=== PATIENT | male | born 1995 | race Caucasian/White ===

== ENCOUNTER 2022-10-29 02:18 | Emergency (ER) | payer MEDICARE, MEDICAID, SELFPAY ==
[2022-10-29 02:20] VITALS: BP 135/83; PULSE 78; RESP 16; TEMP 37.1; O2SAT 96; BMI 29.6
--- NOTE | 2022-10-29 02:26 | ED_ITS ---
HPI - Male Genitourinary General Chief complaint: General Medical Stated complaint: STD check Time Seen by Provider: 10/29/22 02:26 Source: patient Mode of arrival: ambulatory Limitations: no limitations History of Present Illness HPI Narrative: wants HIV test no symptoms no prodrome had unprotected sex with female partner 1 month ago and now thinks she might have HIV Complaint: possible STD exposure Onset (ago): month(s) (1) Severity: mild Relieving factors: none Exacerbating factors: none Context: other (was told his prior partner might have HIV) Associated symptoms: Reports denies other symptoms Related Data Allergies Allergy/AdvReac Type Severity Reaction Status Date / Time No Known Allergies Allergy Unverified 11/03/19 18:36 [No Known Allergies*] Review of Systems Review of Systems: Constitutional : No Fever, No Chills, Cardiovascular : No Chest Pain, No SOB Respiratory : No Dyspnea Gastrointestinal : No abdominal pain, no nausea : no discharge, no swelling, no dysuria Musculoskeletal : No Joint Swelling Skin : No rash, no skin lesions Neuro : No Weakness, No Numbness PMFSH Past Medical History Attestation statement: The following information was validated with the patient. Medical History No pertinent past medical history Social History Social History (Updated 10/29/22 @ 02:45 by Sharifa Álvarez DO) Alcohol intake: current Alcohol intake frequency: holidays/special occasions only Patient Tobacco Use Status: Never used Tobacco Substance Use Type: Marijuana Physical Exam Vital Signs: Vital Signs: Last Vital Signs Temp 98.7 F 10/29/22 02:20 Pulse 78 10/29/22 02:20 Resp 16 10/29/22 02:20 BP 135/83 10/29/22 02:20 Pulse Ox 96 10/29/22 02:20 O2 Del Method Room Air 10/29/22 02:20 BMI result Body Mass Index 29.6 Appearance: Alert. Oriented X3. No acute distress. Eyes: Pupils equal, round and reactive to light. ENT: Pharynx normal. Neck: Normal inspection. Neck supple. CVS: Normal heart rate and rhythm. Pulses normal. Respiratory: No respiratory distress. Breath sounds normal. Abdomen: Soft and non-tender. Skin: Skin warm and dry. Normal skin color. Extremities: No lower extremity edema. Neuro: Oriented X 3. No motor deficit. No sensory deficit. Medical Decision Making Medical Decision Making [facility] Narrative: 26 yo male with no PMH here with c/o possible HIV exposure though not confirmed and no prodrome or symptoms - did send off GC testing but will hold off treatment until results. We talked about HIV testing [facility] as we have no way to closely follow results or do counseling if positive. at this time can follow up as outpatient Differential Diagnosis Differential Diagnoses: The differential diagnosis associated with the presentation includes STD exposure Lab Data [facility] Lab Attestation statement: I reviewed the patient's lab results. Tests considered The following testing was considered but not selected: HIV but there is no way to closely follow up or do counseling Discharge Plan Discharge Clinical Impression: Sexually transmitted disease exposure Patient Disposition: Home, Self-Care Instructions: Sexually Transmitted Diseases (ED) Additional Instructions: [facility] [address] [phone] [facility] [place] is another option [address] [employer] [phone] we did send off urine for gonorrhea and chlamydia if positive we will call you with results.
[2022-10-29 05:32] LABS: CT PCR NOT DETECTED (Not Detect.); NG PCR NOT DETECTED (Not Detect.)
== END 2022-10-29 03:09 | disposition home or self-care (01) ==
LOC: HO.ED 02:46
PROVIDERS: Emergency Provider Emergency Medicine
DX: A64 Unspecified sexually transmitted disease (principal); Z20.2 Contact with and (suspected) exposure to infections with a predominantly sexual mode of transmission
CPT/HCPCS: 0353U; 99283; 99284

== ENCOUNTER 2022-10-30 21:00 | Emergency (ER) | payer MEDICARE, MEDICAID, SELFPAY ==
[2022-10-30 21:05] VITALS: BP 132/84; PULSE 88; RESP 16; TEMP 36.1; O2SAT 98; BMI 26.6
--- NOTE | 2022-10-30 21:19 | ED.PSYCH ---
HPI - Psych General Chief Complaint: Psychiatric Symptoms Stated Complaint: SI WITH PLAN Source: patient Mode of arrival: EMS Limitations: no limitations History of Present Illness HPI Narrative: patient comes to the emergency room complaining of suicidal thoughts. Earlier today, he was at home, talking to his mother over the phone. Patient told his mother that he had suicidal thoughts without any tension. Patient's mother called [facility] who did a well check, call an ambulance and brought the patient to the emergency room. Patient states that earlier today he did feel suicidal without any plan. At this time, he is no longer SI or HI but is expressing interest to talk to the care team. Related Data Home Medications Medication Instructions Recorded Confirmed aripiprazole 2 mg tablet 2 mg PO DAILY 10/30/22 10/30/22 hydroxyzine HCl 25 mg tablet 25 mg PO TID 10/30/22 10/30/22 Allergies Allergy/AdvReac Type Severity Reaction Status Date / Time No Known Allergies Allergy Unverified 11/03/19 18:36 [No Known Allergies*] Review of Systems Review of Systems: Constitutional : No Weight loss, No Fever, No Chills, No Night Sweats, No Fatigue, No Malaise ENT/Mouth : No Hearing loss, No Ear Pain, No Nasal Congestion, No Sinus Pain, No Hoarseness, No sore throat, No Rhinorrhea, No Swallowing Difficulty Eyes: No Eye Pain, No Swelling, No Redness, No Foreign Body, No Discharge, No Vision Changes Cardiovascular : No Chest Pain, No SOB, No Dyspnea on Exertion, No Orthopnea, No Edema, No Palpitations Respiratory : No Cough, No Sputum, No Wheezing, No Smoke Exposure, No Dyspnea Gastrointestinal : No Nausea, No Vomiting, No Diarrhea, No Constipation, No abdominal Pain, No Hematochezia, No Melena Genitourinary : no irregular bleeding, No Dysuria, No Urinary Frequency, No Hematuria, No Urinary Incontinence, No Urgency, No Flank Pain, No Urinary Flow Changes, No Hesitancy Musculoskeletal : No joint pain, No Myalgias, No Joint Swelling Skin : No Skin Lesions, No rash Neuro : No Weakness, No Numbness, No Paresthesias, No Loss of Consciousness, No Dizziness, No Headache Psych : No Anxiety/Panic, No Depression, Suicidal thoughts that self-resolved Heme/Lymph: No Bruising, No Bleeding,No Lymphadenopathy Endocrine : No Polyuria, No Polydipsia, No Temperature Intolerance PMFSH Past Medical History Medical History Anxiety and depression Social History Social History (Updated 10/29/22 @ 02:45 by Sharifa Álvarez DO) Alcohol intake: current Alcohol intake frequency: holidays/special occasions only Patient Tobacco Use Status: Never used Tobacco Substance Use Type: Marijuana Physical Exam Vital Signs: Vital Signs: Last Vital Signs Temp 97 F 10/30/22 21:05 Pulse 88 10/30/22 21:05 Resp 16 10/30/22 21:05 BP 132/84 10/30/22 21:05 Pulse Ox 98 10/30/22 21:05 O2 Del Method Room Air 10/30/22 21:05 BMI result Body Mass Index 26.6 Const: Other: Appearance: Alert. Oriented X3. No acute distress. Eyes: Pupils equal, round and reactive to light. ENT: Pharynx normal. Neck: Normal inspection. Neck supple. No lymph nodes noted. No crepitus CVS: Normal heart rate and rhythm. Pulses normal. Normal S1 and S2 Respiratory: No respiratory distress. Breath sounds normal. No Wheezing. No rales Abdomen: Soft and nontender. No rigidity. No distention. Skin: Skin warm and dry. Normal skin color. Normal skin turgor. Extremities: No lower extremity edema. No Lacerations. No Rash Neuro: Oriented X 3. No motor deficit. No sensory deficit. Moving all extremities. No slurred speech. CN 2 through 12 grossly intact Psych: calm, cooperative, normal affect, coherent Course Course Course Narrative: - all of patient's labs pending - care team consult pending - physician observation started at 21:20 Medical Decision Making Differential Diagnosis Differential Diagnoses: The differential diagnosis associated with the presentation includes ( anxiety, depression, substance abuse) Admission/Observation Consideration of admission/observation: Escalation of care including admission/observation considered ( patient will remain under observation until seen by behavioral health) Discharge Plan Discharge Clinical Impression: Depression, Acute anxiety Patient Disposition: Still a Patient Prescriptions: No Action aripiprazole 2 mg tablet 2 mg PO DAILY hydroxyzine HCl 25 mg tablet 25 mg PO TID
[2022-10-30 21:40] LABS: MANUAL DIFF FLAG NO
[2022-10-30 21:42] LABS: Basophils Absolute Auto 0.1 X10*3/uL (0.0-0.2); Basophils Percent Auto 0.5 % (0-2); Eosinophils Absolute Auto 0.2 X10*3/uL (0.0-0.4); Eosinophils Percent Auto 1.6 % (0-4); Hematocrit 45.1 % (42.0-52.0); Hemoglobin 15.8 g/dl (14.0-18.0); Imm Gran Abs Auto 0.04 X10*3/uL (0.00-0.03); Imm Gran Pct Auto 0.4 % (0.0-0.4); Lymphocytes Percent Auto 20.6 % (20-40); Mean Corpuscular Hemoglobin 31.3 pg (27.0-33.0); Mean Corpuscular Volume 89.5 fL (80.0-98.0); Mean Platelet Volume 9.1 fL (9.4-12.4); Monocytes Absolute Auto 0.7 X10*3/uL (0.1-1.2); Monocytes Percent Auto 7.8 % (2-11); Neutrophils Absolute Auto 6.6 x10*3/uL (2.0-8.3); Neutrophils Percent Auto 69.1 % (45-73); Platelet Count 283 X10*3/uL (160-400); Red Blood Count 5.04 X10*6/uL (4.60-5.80); Red Cell Distribution Width 13.4 % (11.0-16.0); White Blood Count 9.5 X10*3/uL (4.8-10.8)
[2022-10-30 21:44] LABS: Appearance Urine Clear; Color Urine Yellow; Glucose Urine UA Negative (Negative); Leukocyte Esterase Urine Negative (Negative); Nitrite Urine Negative (Negative); Specific Gravity - Urine >= 1.030 (1.005-1.025); Urine Blood Negative (Negative); Urine Ketones Trace mg/dL (Negative); Urine Protein Negative (Neg-Trace)
[2022-10-30 21:55] LABS: Amphetamine Screen Urine Not Detected (Not Detect); Barbiturates, Urine Not Detected (Not Detect); Benzodiazepines Screen Urine Not Detected (Not Detect); Cannabinoid Screen Urine POSITIVE (Not Detect); Cocaine Screen Urine Not Detected (Not Detect); Fentanyl, urine Not Detected (Not Detect); Opiate Screen Urine Not Detected (Not Detect); Phencyclidine Screen Urine Not Detected (Not Detect)
[2022-10-30 21:57] LABS: Ethanol < 10 mg/dL
[2022-10-30 21:58] LABS: Alanine Aminotransferase 20 U/L (0-40); Albumin Level 4.7 g/dL (3.5-5.0); Alkaline Phosphatase 79 U/L (39-117); Anion Gap 12 (12-20); Aspartate Amino Transferase 24 U/L (5-37); Bilirubin Total 0.5 mg/dL (0.0-1.0); Blood Urea Nitrogen 14 mg/dL (9-16); Calcium 9.8 mg/dL (8.4-10.2); Carbon Dioxide 23 mmol/L (22-29); Chloride 109 mmol/L (96-108); Creatinine Clr Calc Pharmacy 133.2; Estimated Glomerular Filt Rate > 60; Glucose Random 105 mg/dL (60-115); Potassium 3.6 mmol/L (3.3-5.1); Sodium 140 mmol/L (135-145)
[2022-10-30 21:58] LABS: Acetaminophen LAB < 17 mcg/mL (<30); Salicylate < 5.0 mg/dL (15-30)
[2022-10-31 02:42] VITALS: BP 136/92; PULSE 63; RESP 17; TEMP 36.4; O2SAT 99
--- NOTE | 2022-10-31 05:10 | PC.NURSE ---
Patient slept through the night, no distress observed/reported, behavior non concerning, med rec completed/pending provider's approval, disposition per care team is KENNETH follow up, placed on section 12 due to past suicidal attempt, labs completed/resulted, VSS, will continue to monitor.
[2022-10-31 06:30] VITALS: BP 120/70; PULSE 59; RESP 17; TEMP 36.4; O2SAT 98
--- NOTE | 2022-10-31 07:53 | PC.NURSE ---
nad, skin wpd, steradfy gait and speech clear, states he wants to go home and that he spoke with his mother this am and is anxious to leave
--- NOTE | 2022-10-31 07:57 | PHA.MEDREC ---
Pharmacy Consult ? Medication Reconciliation Pharmacy has completed the medication reconciliation.PHARMACY HAS REVIEWED MED REC DONE BY MACIEL
[2022-10-31] MEDS: ARIPiprazole 2 MG TABLET PO (10:01)
--- NOTE | 2022-10-31 10:03 | PC.NURSE ---
atarax ordered to be given but pt states it is a prn and states he does not need it as he's not having any anxiety
--- NOTE | 2022-10-31 13:36 | MHC.CARE ---
RAD Team completed a referral for [facility] for this individual. Will follow up 11/03/22 to confirm receipt as it is the weekend and [facility] operates on business hours.
== END 2022-10-31 10:36 | disposition home or self-care (01) ==
PROVIDERS: Emergency Medicine; Emergency Provider Emergency Medicine Emergency Medical Services
DX: F32.A Depression, unspecified (principal); F41.9 Anxiety disorder, unspecified; R45.851 Suicidal ideations; Z79.899 Other long term (current) drug therapy
CPT/HCPCS: 36415; 80053; 80143; 80179; 80307; 81003; 85025; 99284; S9485

== ENCOUNTER 2023-09-22 15:17 | Emergency (ER) | payer MEDICARE, MEDICAID, SELFPAY ==
--- NOTE | ~2023-09-22 | XR_ITS ---
EXAMINATION: XR ABDOMEN KUB CLINICAL INDICATION: Left lower quadrant pain COMPARISON: None available. TECHNIQUE: AP view of the abdomen. FINDINGS: The bowel gas pattern is normal with no evidence of ileus or obstruction. No unusual soft tissue calcifications are noted. The bones are unremarkable. XR/XR KUB IMPRESSION: Unremarkable examination.
[2023-09-22 16:10] VITALS: BP 116/79; PULSE 74; RESP 16; TEMP 37.1; O2SAT 97; BMI 27.7
--- NOTE | 2023-09-22 16:11 | ED.ABDPAIN ---
HPI - Abdominal Pain General Chief Complaint: Abdominal Pain Stated Complaint: Lower abdominal pain Related Data Home Medications ?Medication ?Instructions ?Recorded ?Confirmed aripiprazole 2 mg tablet 2 mg PO DAILY 10/30/22 10/30/22 hydroxyzine HCl 25 mg tablet 25 mg PO TID 10/30/22 10/30/22 Allergies Allergy/AdvReac Type Severity Reaction Status Date / Time No Known Allergies Allergy Verified 09/22/23 16:11 [No Known Allergies*] [facility] Past Medical History Medical History Anxiety and depression Social History Social History (Updated 10/29/22 @ 02:45 by Sharifa Álvarez DO) Alcohol intake: current Alcohol intake frequency: holidays/special occasions only Patient Tobacco Use Status: Never used Tobacco Substance Use Type: Marijuana Advance Directives: No Advance Directives Information Provided: No Do you have a plan to hurt others: No Plan Physical Exam ED Vital Signs: Vital Signs - 24 hr 09/22/23 16:10 Temperature 98.7 F Pulse Rate 74 Respiratory Rate 16 Blood Pressure 116/79 Pulse Oximetry 97 Oxygen Delivery Method Room Air BMI result Body Mass Index 27.7 Course Course Course Narrative: This is a Rapid Medical Examination (RME) performed by Fredy Garcia PA-C in triage. Full HPI, ROS, assessment and treatment plan per primary provider in the Main ED. 27 yo male here for eval intermittent LLQ abdominal pain x1 week. reports assoc constipation, last BM yesterday. passing flatus. no hx of abdominal surgery. tried miralax w/o improvement in pain. Plan: labs, ua, KUB Reevaluation(s) Reevaluation #1: Patient left the ED without completing treatment. Discharge Plan Discharge Clinical Impression: Abdominal pain, Nausea & vomiting Patient Disposition: Left W/O Completing Treatment Prescriptions: No Action aripiprazole 2 mg tablet 2 mg PO DAILY hydroxyzine HCl 25 mg tablet 25 mg PO TID Discharge Date/Time: 09/22/23 21:05
--- NOTE | 2023-09-22 21:04 | PC.NURSE ---
pt not present in waiting when called x3; [phone], [phone], 2038
== END 2023-09-22 21:05 | disposition left against medical advice (07) ==
PROVIDERS: Emergency Provider Emergency Medicine
DX: R10.30 Lower abdominal pain, unspecified (principal); R11.2 Nausea with vomiting, unspecified; K59.00 Constipation, unspecified
CPT/HCPCS: 74018; 99281

== ENCOUNTER 2024-12-21 21:51 | Emergency (ER) | payer MEDICARE, MEDICAID, SELFPAY ==
[2024-12-21 21:59] VITALS: BP 130/80; PULSE 84; O2SAT 95
[2024-12-21 22:09] VITALS: BP 142/76; PULSE 77; RESP 16; TEMP 36.4; O2SAT 96; BMI 25.8
[2024-12-21 22:13] VITALS: BP 142/76; PULSE 77; RESP 16; TEMP 36.4; O2SAT 96
--- OUTSIDE RECORDS SUMMARY | 2024-12-21 22:18 | XMS_ITS | Encounter Summary ---
Author Organization [facility] Address [address] [place] [phone] Phone Care Team Providers Care Self Propelled Dredge Operator Name Role Phone Alex Abarca MD Primary Care Provider [phone] Encounter Details Date Type Department Care Team (Late st Contact Info) Description 10/03/2010 Conversion Encounter [facility] [address] [place] [address] [place] [phone] Social History Tobacco Use Types Packs/Day Years Used Date Smoking Tobacco: Never Assessed Sex and Gender Information Value Date Recorded Sex Assigned at Not on file Legal Sex Male 6:16 PM EDT Gender Identity Not on file Sexual Orientation Not on file documented as of this encounter Plan of Treatment Not on file documented as of this encounter Visit Diagnoses Not on filedocumented in this encounter Care Teams Self Propelled Dredge Operator Relationship Specialty Start Date End Date Alex Abarca MD [address] [place] [address] [place] [id number] PCP - General 06/24/17 documented as of this encounter
--- OUTSIDE RECORDS SUMMARY | 2024-12-21 22:18 | XMS_ITS | Clinical Summary ---
Author Organization [facility] Address [address] [place] [address] Care Team Providers Care Feather Baler Name Role Phone Unavailable Primary Care Provider Unavailabl e Social History Tobacco Use Types Packs/Day Years Used Date Smoking Tobacco: Never Assessed Sex and Gender Information Value Date Recorded Sex Assigned at Not on file Legal Sex Male 9:27 AM EST Gender Identity Not on file Sexual Orientation Not on file Plan of Treatment Health Maintenance Due Date Last Done Comments DTaP,Tdap,and Td Vaccines (1 - Tdap) 12/25/2014 Hepatitis B Vaccines (1 of 3 - 19+ 3-dose series) 12/25/2014 HPV Vaccines (1 - 3-dose SCD M series) 12/25/2022 Depression Screening 02/17/2024 COVID-19 Vaccine (1 - 2023-2 5 season) 2024 Influenza Vaccine (#1) 2024 RSV Immunization Adult Patie nts (1 - 1-dose 75+ series) 12/25/2070 HIB Vaccines Aged Out No longer eligi ble based on patient's age to complete this topic Hepatitis A Vaccines Aged Out No long er eligible based on patient's age to complete this topic IPV Vaccines Aged Out No longer eligi ble based on patient's age to complete this topic MMR Vaccines Aged Out No longer eligi ble based on patient's age to complete this topic Meningococcal ACWY Vaccine Aged Out N o longer eligible based on patient's age to complete this topic Meningococcal B Vaccine Aged Out No l onger eligible based on patient's age to complete this topic Pneumococcal Vaccine: Pediat rics (0 to 5 Years) and At-Risk Patients (6 to 49 Years) Aged Out No longer eligible b ased on patient's age to complete this topic RSV Immunization Patients Un margarita 20 months Aged Out No longer eligible b ased on patient's age to complete this topic Varicella Vaccines Aged Out No longer eligible based on patient's age to complete this topic
--- OUTSIDE RECORDS SUMMARY | 2024-12-21 22:18 | XMS_ITS | Clinical Summary ---
Author Organization [facility] Address [address] [place] [phone] Phone Care Team Providers Care Residential Concierge Name Role Phone Alex Abarca MD Primary Care Provider [phone] Immunizations Immunization Administration Dates Next Due DTaP 5 01/23/2000, 8,06/24/1996,05/04,03/14/1996 H1N1 Inj Preservative Free 04/10/2009 HPV, Quadrivalent 03/29/2013 Hep B, ped/adol 11/01/1996,03/14/1996,1995 Hib (PRP-T) 07/03/1997, 7,05/04/1996,03/14 IPV 01/23/2000, 8,05/04/1996,03/14 Influenza, injectable, trivalent 03/29/2013,12/17,04/10/2009 Influenza, injectable, triva lent, preservative free 10/03/2010 MMR 01/23/2000,07/03/1997 Meningococcal Conj (Menactra) MCV4P 04/10/2009 Tdap 04/10/2009 Varicella 04/10/2009,10/11/1998 Social History Tobacco Use Types Packs/Day Years Used Date Smoking Tobacco: Some Days Comments:Current Some Day Sm oker Sex and Gender Information Value Date Recorded Sex Assigned at Not on file Legal Sex Male 6:16 PM EDT Gender Identity Not on file Sexual Orientation Not on file Last Filed Vital Signs Vital Sign Reading Time Taken Comments Blood Pressure - - Pulse 82 03/29/2013 3:24 PM EST Temperature 36.4 C (97.6 F) 08/29/2013 2:16 PM EDT Respiratory Rate - - Oxygen Saturation - - Inhaled Oxygen Concentration - - Weight 68.9 kg (152 lb) 08/29/2013 2:16 PM EDT Height 167 cm (5' 5.75 ) 08/29/2013 2:16 PM EDT Body Mass Index 24.72 08/29/2013 2:16 PM EDT Plan of Treatment Health Maintenance Due Date Last Done Comments HPV Vaccines (2 - Male 3-dose series) 04/26/2013 03/29/2013 DTaP,Tdap,and Td Vaccines (7 - Td or Tdap) 04/10/2019 04/10/2009, 01/23/2000, 07/03/1997, Additional history exists Influenza Vaccines (#1) 2024 03/29/19 14, 12/30/2011, 10/03/2010, Additional history exists COVID-19 Vaccine ( - season) 2024 Hepatitis B Vaccines Completed 11/01/1996, 03/14/1996, 1995 HIB Vaccines Completed 07/03/1997, 10/1996, 05/04/1996, Additional history exists IPV Vaccines Completed 01/23/2000, 06/16, 05/04/1996, Additional history exists MMR Vaccines Completed 01/23/2000, 07/03/1997 Meningococcal Vaccine Aged Out 04/10/2009 No awilda jenny eligible based on patient's age to complete this topic Varicella Vaccines Completed 04/10/2009, 10/11/1998 Hepatitis A Vaccines Aged Out No long er eligible based on patient's age to complete this topic Men B Vaccine Aged Out No longer elig ible based on patient's age to complete this topic Pneumococcal Vaccine Aged Out No long er eligible based on patient's age to complete this topic Care Teams Residential Concierge Relationship Specialty Start Date End Date Alex Abarca MD [address] [place] [address] [place] [phone] PCP - General 06/24/17
[2024-12-21 23:05] LABS: MANUAL DIFF FLAG NO
[2024-12-21 23:06] LABS: Hematocrit 43.2 % (42.0-52.0); Hemoglobin 14.5 g/dl (14.0-18.0); Imm Gran Abs Auto 0.03 X10*3/uL (0.00-0.03); Imm Gran Pct Auto 0.3 % (0.0-0.4); Lymphocytes Absolute Auto 2.1 X10*3/uL (1.2-4.9); Mean Corpuscular HGB Conc 33.6 g/dl (31.0-36.0); Mean Corpuscular Hemoglobin 30.1 pg (27.0-33.0); Mean Corpuscular Volume 89.6 fL (80.0-98.0); NRBC Abs Auto 0.000 X10*3/uL (0.0-0.012); NRBC Pct Auto 0.0 /100WBC (0.0-0.2); Platelet Count 244 X10*3/uL (160-400); Red Blood Count 4.82 X10*6/uL (4.60-5.80); White Blood Count 11.3 X10*3/uL (4.8-10.8)
[2024-12-21 23:20] LABS: Anion Gap 12 (12-20); Blood Urea Nitrogen 16 mg/dL (9-16); Calcium 9.0 mg/dL (8.4-10.2); Carbon Dioxide 24 mmol/L (22-29); Chloride 112 mmol/L (96-108); Creatinine Clr Calc Pharmacy 127.8; Estimated Glomerular Filt Rate > 60; Potassium 3.9 mmol/L (3.3-5.1); Sodium 144 mmol/L (135-145)
[2024-12-21 23:35] LABS: Cannabinoid Screen Urine POSITIVE (Not Detect)
--- NOTE | 2024-12-22 00:48 | ED_ITS ---
HPI - General Adult General Chief complaint: Psychiatric Symptoms Stated complaint: DEPRESSION SI Time Seen by Provider: 12/22/24 00:19 Source: patient, RN notes reviewed and old records reviewed Mode of arrival: EMS Limitations: no limitations History of Present Illness ED Provider: Pardeep DAS narrative: 28-year-old male with past medical history significant for depression noncompliant with the Abilify presents for evaluation of depression. Patient reports increased stressors in life. He reports that he tried to can find and some friends that he has been having increased depression and felt as if he was not heard. He feels alone. He has a history of self-harm and new make some minor superficial cuts to his left forearm. Denies any suicidal ideation. The patient is seeking outpatient resources to follow up with a therapist as he lost touch with his therapist. He states his goal for today are to be given outpatient resources and be discharged home as he would like to go to work tomorrow. Related Data Home Medications ?Medication ?Instructions ?Recorded ?Confirmed aripiprazole 2 mg tablet 2 mg PO DAILY 10/30/2210/30 hydroxyzine HCl 25 mg tablet 25 mg PO TID 10/30/22 Allergies Allergy/AdvReac Type Severity Reaction Status Date / Time No Known Allergies (No Known Allergy Verified 12/21/24 22:11 Allergies*) Review of Systems 2 Constitutional: Constitutional: Denies body ache(s), Denies chills, Denies fever(s), Denies frequent falls and Denies headache(s) Eyes: Eyes: Denies blurry vision ENT: Denies vertigo, Denies dizziness and Denies headache(s) Cardiovascular: Cardiovascular: Denies chest pain and Denies dyspnea on exertion Respiratory: Respiratory: Denies cough and Denies dyspnea on exertion Gastrointestinal: Gastrointestinal: Denies abdominal pain, Denies nausea and Denies vomiting Musculoskeletal: Musculoskeletal: Denies back pain Integumentary/Breasts: Skin/Breast: Denies rash Neurologic: Denies vertigo, Denies dizziness, Denies frequent falls and Denies headache(s) Psychiatric: Psychiatric: Reports depression, Denies auditory hallucinations, Denies visual hallucinations, Denies homicidal ideation and Denies suicidal ideation [facility] Past Medical History Medical History Anxiety and depression Social History Social History (Updated 10/29/22 @ 02:45 by Sharifa Álvarez DO) Alcohol intake: current Alcohol intake frequency: holidays/special occasions only Patient Tobacco Use Status: Never used Tobacco Substance Use Type: Marijuana Advance Directives: No Advance Directives Information Provided: No Physical Exam ED Vital Signs: Vital Signs - 24 hr 12/21/24 22:09 12/21/24 22:13 12/22/24 01:01 Temperature 97.6 F 97.6 F 97.6 F Pulse Rate 77 77 77 Respiratory Rate 16 16 16 Blood Pressure 142/76 H 142/76 H 142/76 H Pulse Oximetry 96 96 96 Oxygen Delivery Method Room Air Room Air Room Air BMI result Body Mass Index 25.8 Const General: healthy appearing, comfortable, no acute distress, alert and awake Nutritional Appearance: well nourished Orientation/consciousness: patient oriented x3 HENMT Head: Yes normocephalic and Yes atraumatic Eyes Eyelids: Yes eyelids normal Conjunctivae: conjunctivae normal Sclerae: sclerae normal Corneas: corneas normal Pupils: Equal, round and reactive pupils present EOM: EOMs intact bilaterally Neck Neck: Yes full ROM Resp Effort & Inspection: normal respiratory effort, able to speak in complete sentences and not labored GI Inspection: No distended Palpation (GI): Soft to palpation, not firm, nontender, no guarding and not rigid Skin General skin exam: elasticity normal Neuro General: patient oriented x3 Cranial nerves: Yes CN's II-XII intact bilaterally, Yes Equal, round and reactive pupils present and Yes Bilaterally intact EOM present Cognition (Neuro): normal cognition Extrem Other: Moving all extremities well without any obvious deformities Medical Decision Making Medical Decision Making MDM Narrative: 28-year-old male with a history of depression presents for evaluation of depression. He reports feeling lonely but denies any suicidal thoughts. He denies any somatic complaints. He reports he has been noncompliant with the Abilify in the past. The patient was offered a care team referral and consult but he declines. He would like to be discharged home with resources. I gave him the booklet for [facility] for outpatient intake and follow up. The patient is comfortable this plan, he continues to deny SI and again reports he does not wish to speak with the care team tonight. He would like to be discharged home which I do not feel any reason to hold him against his will. Differential Diagnosis Differential Diagnoses: The differential diagnosis associated with the presentation includes Depression Medication noncompliance Mood disorder Suicidal ideation Lab Data MDM Lab Attestation statement: I reviewed the patient's lab results. Mild leukocytosis of 11.3 which could be related to alcohol abuse, no evidence of infectious process. No significant anemia. Normal platelet count. No electrolyte abnormalities warranting intervention. 12/21/24 23:01 12/21/24 23:01 Labs: Lab Results 12/21/24 12/21/24 Range/Units 23:01 23:15 WBC 11.3 H (4.8-10.8) X10*3/uL RBC 4.82 (4.60-5.80) X10*6/uL Hgb 14.5 (14.0-18.0) g/dl Hct 43.2 (42.0-52.0) % MCV 89.6 (80.0-98.0) fL MCH 30.1 (27.0-33.0) pg MCHC 33.6 (31.0-36.0) g/dl RDW 13.3 (11.0-16.0) % Plt Count 244 (160-400) X10*3/uL MPV 9.3 L (9.4-12.4) fL Immature Gran % (Auto) 0.3 (0.0-0.4) % Neut % (Auto) 71.6 (45-73) % Lymph % (Auto) 18.3 L (20-40) % [place] % (Auto) 6.5 (2-11) % Eos % (Auto) 2.5 (0-4) % Baso % (Auto) 0.8 (0-2) % Lymph # (Auto) 2.1 (1.2-4.9) X10*3/uL [place] # (Auto) 0.7 (0.1-1.2) X10*3/uL Eos # (Auto) 0.3 (0.0-0.4) X10*3/uL Baso # (Auto) 0.1 (0.0-0.2) X10*3/uL Abs Immat Gran (auto) 0.03 (0.00-0.03) X10*3/uL Absolute Neuts (auto) 8.1 (2.0-8.3) x10*3/uL Absolute Nucleated RBC 0.000 (0.0-0.012) X10*3/uL Nucleated RBC % (auto) 0.0 (0.0-0.2) /100WBC Sodium 144 (135-145) mmol/L Potassium 3.9 (3.3-5.1) mmol/L Chloride 112 H (96-108) mmol/L Carbon Dioxide 24 (22-29) mmol/L Anion Gap 12 (12-20) BUN 16 (9-16) mg/dL Creatinine 0.86 (0.5-1.4) mg/dL Estim Creat Clear Calc 127.8 Estimated GFR > 60 Random Glucose 113 (60-115) mg/dL Calcium 9.0 D (8.4-10.2) mg/dL Urine Opiates Screen Not Detected (Not Detect) Ur Buprenorphine Scrn Not Detected (Not Detect) ng/mL Ur Oxycodone Screen Not Detected (Not Detect) ng/mL Urine Methadone Screen Not Detected (Not Detect) ng/mL Urine Fentanyl Screen Not Detected (Not Detect) Ur Barbiturates Screen Not Detected (Not Detect) Ur Phencyclidine Scrn Not Detected (Not Detect) Ur Amphetamines Screen Not Detected (Not Detect) U Benzodiazepines Scrn Not Detected (Not Detect) Urine Cocaine Screen Not Detected (Not Detect) U Marijuana (THC) Screen POSITIVE H (Not Detect) Ethyl Alcohol < 10 mg/dL Discharge Plan Discharge Clinical Impression: Depression Patient Disposition: Home, Self-Care Instructions: Depression (ED) Additional Instructions: Follow up with the resources provided. I recommend that you return to the ER if you are having any thoughts of harming herself or any suicidal thoughts You were seen in our Emergency Department today for treatment of a mental health issue. It is important after your visit that you follow up with either your behavioral health provider or a primary care doctor within 7 days.? If you have trouble finding a therapist you can reach out to [place] [phone] The National Suicide and Crisis Lifeline can be reached 7 days a week 24 hours a day.? Call 988 to speak with someone.? Return for any worsening symptoms or concerns such as thoughts of self harm or harm to others. Please call 911 if you feel your mental health is worsening.? Prescriptions: No Action aripiprazole 2 mg tablet 2 mg PO DAILY hydroxyzine HCl 25 mg tablet 25 mg PO TID Interventions: [place]-Suicide Risk Severity Scale Last Done: 12/21/24 22:11 ED Discharge Assessment Last Done: 12/22/24 01:01 Print Language: Yoruba
[2024-12-22 01:01] VITALS: BP 142/76; PULSE 77; RESP 16; TEMP 36.4; O2SAT 96
--- OUTSIDE RECORDS SUMMARY | 2025-02-02 19:00 | XMS_ITS | Clinical Summary ---
Author Organization Unknown Care Team Providers Care Pantry Chef Name Role Phone GIGI MARTINEZ, CLEMENCIA Unavailable Unavailable BARBIE PHILIP, CLIVE Unavailable Unavailable Payers Payer Name Policy Type Policy Number Effective Date Expira tion Date [place] [id number] [place] [id number] Problems Condition Name Condition Details Condition Category Status Onset Date Resolution Date Last Treatment Date Treating Clinician Comments MAJOR DEPRESSIVE DISORDER, RECURRENT, MODERATE Active 2021-02 00:00: 00 Allergies, Adverse Reactions, Alerts Allergy Name Allergy Type Status Severity Reaction(s) Onset Date Inactive Date Treating Clinician Comments NKA Propensity to adverse reactions Active 2022-02 19:28:0 5 Medications Ordered Medication Name Filled Medication Name Start Date Stop Date Current Medication? Ordering Clinician Indication Dosage Frequency Signature (SIG) Comments Components aripiprazol e 2 mg tablet 2021-02 00:00: 00 06-08 23:59 :00 No [id number] 2 mg ONCE A DAY 2 mg ONCE A DAY (route: oral) Med Classific ation: Central Nervous System Agents hydroxyzine HCl 25 mg tablet 2021-02 00:00: 00 Yes [id number] 25 mg DIRECTED 25 mg DIRECTED (route: oral) Med Classific ation: Central Nervous System Agents Nicotrol 10 mg inhalation cartridge 2021-02 00:00: 00 02-20 23:59 :00 No [id number] 10 each DAILY 10 each DAILY (route: inhalation ) Med Classific ation: Chemical Dependenc y, Agents to Treat hydroxyzine HCl 25 mg tablet 02-20 00:00: 00 09-29 23:59 :00 No [id number] 25 mg DIRECTED 25 mg DIRECTED (route: oral) Med Classific ation: Central Nervous System Agents aripiprazol e 5 mg tablet 06-09 00:00: 00 Yes [id number] 5 mg DAILY 5 mg KEILA Y (route: oral) Med Classific ation: Central Nervous System Agents Vital Signs Vital Name Observation Time Observation Value Commen ts Temperature 2024-12-20 09:48:00.000 97.6 [degF] Temperature 2024-12-19 09:27:00.000 97.5 [degF] Temperature 2024-12-16 09:56:00.000 97.2 [degF] Temperature 2024-12-15 09:12:00.000 97.5 [degF] Temperature 2024-12-14 09:24:00.000 97.5 [degF] Temperature 2024-12-13 09:58:00.000 97.5 [degF] Temperature 2024-12-12 09:18:00.000 97.5 [degF] Temperature 2024-12-09 09:51:00.000 97.6 [degF] Temperature 2024-12-08 09:34:00.000 97.5 [degF] Temperature 2024-12-07 09:54:00.000 97.5 [degF] Temperature 2024-12-06 09:43:00.000 97.4 [degF] Plan of Treatment Planned Activity Planned Date Details Comments Future Scheduled Test SKILLED NU RSE TO EVALUATE PATIENT, IDENTIFY PRIMARY AND CO-MORBID CONDITIONS CODED PER CODING GUIDELINES, AND DEVELOP PATIENT SPECIFIC PLAN OF CARE THAT INCLUDES PATIENT GOAL FOR HOME HEALTH. [code = SKILLED NURSE TO EVALUATE PATIENT, IDENTIFY PRIMARY AND CO-MORBID CONDITIONS CODED PER CODING GUIDELINES, AND DEVELOP PATIENT SPECIFIC PLAN OF CARE THAT INCLUDES PATIENT GOAL FOR HOME HEALTH.] Future Scheduled Test SKILLED NU RSE FOR MEDICATION ADMINISTRATION PER MEDICATION LIST TO BE PERFORMED [code = SKILLED NURSE FOR MEDICATION ADMINISTRATION PER MEDICATION LIST TO BE PERFORMED] Future Scheduled Test SKILLED NU RSE TO O/A OF PATIENTS MENTAL/BEHAVIORAL STATUS, ASSESS VITAL SIGNS WEEKLY. ALLOW 2 PRNS FOR MEDICATION MANAGEMENT. [code = SKILLED NURSE TO O/A OF PATIENTS MENTAL/BEHAVIORAL STATUS, ASSESS VITAL SIGNS WEEKLY. ALLOW 2 PRNS FOR MEDICATION MANAGEMENT.] Future Scheduled Test SKILLED NU RSE FOR O/A OF PATIENT'S RISK FOR VIOLENCE (TOWARD SELF OR OTHERS) AND TO PROVIDE INTERVENTION TECHNIQUES TO PROMOTE SAFETY TO PATIENT AND OTHERS [code = SKILLED NURSE FOR O/A OF PATIENT'S RISK FOR VIOLENCE (TOWARD SELF OR OTHERS) AND TO PROVIDE INTERVENTION TECHNIQUES TO PROMOTE SAFETY TO PATIENT AND OTHERS] Future Scheduled Test MEDICATION S WILL BE HELD AND STORED IN LOCKBOX [code = MEDICATIONS WILL BE HELD AND STORED IN LOCKBOX] Future Scheduled Test SKILLED NU RSE FOR O/A OF GENERAL HEALTH STATUS OF PAIN, CARDIAC, RESPIRATORY, GASTROINTESTINAL, GENITOURINARY, SKIN, NEUROLOGIC, ENDOCRINE SYSTEMS TO IDENTIFY CHANGES ASSOCIATED WITH EXACERBATION FOR EARLY INTERVENTION OF COMPLICATIONS WEEKLY. [code = SKILLED NURSE FOR O/A OF GENERAL HEALTH STATUS OF PAIN, CARDIAC, RESPIRATORY, GASTROINTESTINAL, GENITOURINARY, SKIN, NEUROLOGIC, ENDOCRINE SYSTEMS TO IDENTIFY CHANGES ASSOCIATED WITH EXACERBATION FOR EARLY INTERVENTION OF COMPLICATIONS WEEKLY.] Future Scheduled Test SKILLED NU RSE FOR O/A AND SKILLED TEACHING RELATED TO MANAGEMENT OF DEPRESSIVE SYMPTOMS AND/OR DEPRESSION. SN TO REPORT SIGNIFICANT CHANGE IN DEPRESSIVE SYMPTOMS TO CLINICAL PROVIDER FOR EARLY INTERVENTION. [code = SKILLED NURSE FOR O/A AND SKILLED TEACHING RELATED TO MANAGEMENT OF DEPRESSIVE SYMPTOMS AND/OR DEPRESSION. SN TO REPORT SIGNIFICANT CHANGE IN DEPRESSIVE SYMPTOMS TO CLINICAL PROVIDER FOR EARLY INTERVENTION.] Future Scheduled Test SKILLED NU RSE TO PERFORM HOME SAFETY AND FALL ASSESSMENT AND PROVIDE INSTRUCTION TO IMPLEMENT HOME SAFETY AND FALL PREVENTION STRATEGIES. [code = SKILLED NURSE TO PERFORM HOME SAFETY AND FALL ASSESSMENT AND PROVIDE INSTRUCTION TO IMPLEMENT HOME SAFETY AND FALL PREVENTION STRATEGIES.] Future Scheduled Test PATIENT AYERS S A RISK OF HOSPITALIZATION AND ED USE. SKILLED NURSE TO ESTABLISH SUPPORT MEASURES TO MINIMIZE RISK OF HOSPITALIZATION AND ED USE, AND INSTRUCT PATIENT/CAREGIVER ON METHODS TO REDUCE AVOIDABLE HOSPITALIZATION AND ED USE. [code = PATIENT HAS A RISK OF HOSPITALIZATION AND ED USE. SKILLED NURSE TO ESTABLISH SUPPORT MEASURES TO MINIMIZE RISK OF HOSPITALIZATION AND ED USE, AND INSTRUCT PATIENT/CAREGIVER ON METHODS TO REDUCE AVOIDABLE HOSPITALIZATION AND ED USE.] Future Scheduled Test SKILLED NU RSE TO REVIEW PATIENT MEDICATIONS. INSTRUCT PATIENT/CAREGIVER ON MONITORING OF EFFECTIVENESS, ADVERSE DRUG REACTIONS, SIDE EFFECTS OF ALL MEDICATIONS (PRESCRIPTION/-OTC), AND HOW AND WHEN TO REPORT PROBLEMS. [code = SKILLED NURSE TO REVIEW PATIENT MEDICATIONS. INSTRUCT PATIENT/CAREGIVER ON MONITORING OF EFFECTIVENESS, ADVERSE DRUG REACTIONS, SIDE EFFECTS OF ALL MEDICATIONS (PRESCRIPTION/-OTC), AND HOW AND WHEN TO REPORT PROBLEMS.] Future Scheduled Test SKILLED NU RSE FOR O/A OF CLIENT'S SOCIAL ISOLATION AND PROVIDE ASSISTANCE TO CLIENT IN DEVELOPMENT OF PLANNED ACTIVITIES [code = SKILLED NURSE FOR O/A OF CLIENT'S SOCIAL ISOLATION AND PROVIDE ASSISTANCE TO CLIENT IN DEVELOPMENT OF PLANNED ACTIVITIES] Future Scheduled Test SKILLED NU RSE TO ASSESS PATIENT S PSYCHOSOCIAL STATUS TO IDENTIFY POTENTIAL ISSUES THAT MAY COMPLICATE THE PROVISION OF THE PLAN OF CARE INCLUDING THE PATIENT S ABILITY TO ACCESS COMMUNITY RESOURCES AND PSYCHOSOCIAL SUPPORT SERVICES. [code = SKILLED NURSE TO ASSESS PATIENT S PSYCHOSOCIAL STATUS TO IDENTIFY POTENTIAL ISSUES THAT MAY COMPLICATE THE PROVISION OF THE PLAN OF CARE INCLUDING THE PATIENT S ABILITY TO ACCESS COMMUNITY RESOURCES AND PSYCHOSOCIAL SUPPORT SERVICES.] Future Scheduled Test SKILLED NU RSE WILL MAINTAIN SITUATIONAL AWARENESS FOR SAFETY AND WILL NOTIFY CLINICAL VICE PRESIDENT MARKETING & DEVELOPMENT AND PHYSICIAN/PROVIDER WITH ANY CHANGE IN CONDITION. [code = SKILLED NURSE WILL MAINTAIN SITUATIONAL AWARENESS FOR SAFETY AND WILL NOTIFY CLINICAL VICE PRESIDENT MARKETING & DEVELOPMENT AND PHYSICIAN/PROVIDER WITH ANY CHANGE IN CONDITION.] Future Scheduled Test SKILLED NU RSE TO PROVIDE INSTRUCTION TO PATIENT/CAREGIVER RELATED TO DISCHARGE PLANNING. [code = SKILLED NURSE TO PROVIDE INSTRUCTION TO PATIENT/CAREGIVER RELATED TO DISCHARGE PLANNING.] Goal 2022-04-16 Patient Goal - TAKING MY MED ICATION Goal 2022-06-16 Patient Goal - TAKING MY MED ICATION Goal 2022-10-13 Patient Goal - TAKING MY MED ICATION Goal 2022-12-12 Patient Goal - TAKING MY MED ICATION Goal 2023-02-11 Patient Goal - TAKING MY MED ICATION Goal 2023-06-10 Patient Goal - TAKING MY MED ICATION Goal 2023-08-10 Patient Goal - TAKING MY MED ICATION Goal 2023-10-08 Patient Goal - TAKING MY MED ICATION Goal 2023-12-07 Patient Goal - TAKING MY MED ICATION Goal 2024-02-05 Patient Goal - TAKING MY MED ICATION Goal 2024-04-05 Patient Goal - TAKING MY MED ICATION Goal 2024-06-06 Patient Goal - TAKING MY MED ICATION Goal 2024-08-05 Patient Goal - TAKING MY MED ICATION Goal 2024-10-05 Patient Goal - TAKING MY MED ICATION Goal 2024-12-01 Patient Goal - TAKING MY MED ICATION Goal Patient Goal - TAKING MY MED ICATION Goal 2023-04-13 Patient Goal - TAKING MY MED ICATION Goal 2022-08-14 Patient Goal - TAKING MY MED ICATION Goal Provider Goal - A PLAN OF CARE WILL BE ESTABLISHED THAT MEETS PATIENT'S GROUP HOME NEEDS AND INCLUDES PATIENT GOAL FOR HOME HEALTH. Goal Provider Goal - PATIENT WILL COMPLY WITH MEDICATION WHEN NURSE ADMINISTERS THROUGHOUT CERTIFICATION PERIOD. Goal Provider Goal - ALTERED MENTAL/BEHAVIORAL STATUS WILL BE IDENTIFIED PROMPTLY AND INTERVENTION INITIATED QUICKLY TO MINIMIZE ASSOCIATED RISKS THROUGHOUT CERTIFICATION PERIOD. Goal Provider Goal - PATIENT WILL REMAIN SAFE IN COMMUNITY WITHOUT EVIDENCE OF INJURY/HARM TO SELF OR OTHERS THROUGHOUT CERTIFICATION PERIOD. Goal Provider Goal - MEDICATION WILL BE STORED IN LOCKBOX FOR SAFETY. Goal Provider Goal - CHANGE IN GENERAL HEALTH STATUS WILL BE IDENTIFIED AND REPORTED TO PHYSICIAN FOR PROMPT INTERVENTION TO MINIMIZE ASSOCIATED RISKS THROUGHOUT CERTIFICATION PERIOD. Goal Provider Goal - PATIENT WILL REMAIN SAFE WITHOUT DECOMPENSATION IN DEPRESSIVE CONDITION, WHILE MAINTAINING OPTIMAL LEVEL OF MENTAL HEALTH AND WELL BEING THROUGHOUT CERTIFICATION PERIOD. Goal Provider Goal - PATIENT/CAREGIVER WILL VERBALIZE/DEMONSTRATE EFFECTIVE HOME SAFETY AND FALL PREVENTION STRATEGIES THROUGHOUT CERTIFICATION PERIOD. Goal Provider Goal - PATIENT WILL HAVE SUPPORT MEASURES ESTABLISHED TO PREVENT HOSPITALIZATION AND ED USE AND PATIENT/CAREGIVER WILL VERBALIZE/DEMONSTRATE METHODS TO REDUCE AVOIDABLE HOSPITALIZATION AND ED USE BY END OF EPISODE. Goal Provider Goal - PATIENT/CAREGIVER WILL VERBALIZE UNDERSTANDING OF EDUCATION PROVIDED ON MEDICATIONS BY THE END OF THE CERTIFICATION PERIOD. Goal Provider Goal - PATIENT WILL DEMONSTRATE AN INCREASED INTEREST IN SOCIALIZATION AND ACTIVITIES BY THE END OF THE CERTIFICATION PERIOD. Goal Provider Goal - PSYCHOSOCIAL NEEDS WILL BE IDENTIFIED AND PLAN IMPLEMENTED TO MINIMIZE RISK THROUGHOUT CERTIFICATION PERIOD. Goal Provider Goal - PATIENT WILL REMAIN SAFE IN THE COMMUNITY AND WILL BE FREE OF DANGER TO SELF AND OTHERS THROUGHOUT THE CERTIFICATION PERIOD. Goal Provider Goal - PATIENT/CAREGIVER WILL VERBALIZE UNDERSTANDING OF DISCHARGE PLANNING INSTRUCTIONS BY DATE OF DISCHARGE. Encounters Start Date/Time End Date/Time Encounter Type Admission Type Attending [facility] Care Department Encounter ID Discharge Date Discharge Status Discharge Condition Discharge Reason Percent Goals Met 2024-12-06 00:00:00 2025-02-03 00:00:00 Outpatient RECERTIFIC ATION CLIVE VALENTIN [facility] [id number] 35.48
== END 2024-12-22 01:20 | disposition home or self-care (01) ==
PROVIDERS: Emergency Provider Emergency Medicine
DX: F32.A Depression, unspecified (principal); F12.90 Cannabis use, unspecified, uncomplicated; Z91.128 Patient's intentional underdosing of medication regimen for other reason
CPT/HCPCS: 36415; 80048; 80307; 85025; 99283; 99284